=== PATIENT | male | born 1950 | race Caucasian/White ===

== ENCOUNTER → 2018-07-14 | Outpatient (CLI) | payer MEDICARE ==
--- NOTE | 2018-07-14 11:39 | KCIC ---
EXAMINATION: Magnetic resonance imaging (MRI) of the lumbar spine without contrast 07/14/2018 10:15 AM HISTORY: Low back pain extending to the bilateral gluteal regions for 2 weeks. TECHNIQUE: Multiplanar multi-weighted MRI of the lumbar spine was performed without intravenous contrast using the standard lumbar spine protocol. Contrast information: None administered. COMPARISON: None available. FINDINGS: There is minimal retrolisthesis of L2 on L3. Minimal anterolisthesis of L3 on L4 and L4 on L5. There is disc desiccation at all levels of the lumbar spine, sparing L5-S1. Mild disc height loss is identified at L2-L3. No acute fracture is identified. Vertebral body heights are maintained. Mild to moderate intramarginal osteophytosis is identified from L1-L2 through L4-L5. Conus medullaris terminates at L1. Distal spinal cord signal intensity is normal in all sequences. Mild Modic type II endplate degenerative changes are identified anteriorly at L1-L2 and L2-L3. Foci of T1 signal hyperintensity are scattered throughout the lumbar spine suggestive of areas of fatty marrow replacement. There is mild ectasia of infrarenal abdominal aorta measuring 2.5 x 2.4 cm. There is a right common iliac artery aneurysm measuring 3.1 cm. Visualized portions of the sacrum appear intact. L1-L2: Disc is normal in configuration. There is mild facet arthropathy with ligamentum flavum infolding. No neuroforaminal or spinal canal stenosis. L2-L3: There is mild disc bulge. There is moderate facet arthropathy with ligamentum flavum infolding. There is moderate right and mild left neuroforaminal stenosis. There is mild spinal canal stenosis. L3-L4: There is moderate disc bulge. There is moderate facet arthropathy ligamentum flavum infolding. There is moderate right and mild/moderate left neuroforaminal stenosis. Moderate spinal canal stenosis with bilateral lateral recess stenosis. L4-L5: There is moderate disc bulge. There is moderate facet arthropathy. There is mild to moderate bilateral neuroforaminal stenosis, left greater than right. Mild spinal canal stenosis. There is left lateral recess stenosis. L5-S1: Disc is normal in configuration. There is mild to moderate facet arthropathy. No neuroforaminal or spinal canal stenosis. IMPRESSION: 1. Mild multilevel spondylolisthesis with moderate degenerative changes of the lumbar spine, as described in detail above. Findings are most significant from L2-L3 through L4-L5. 2. Right common iliac artery aneurysm measuring up to 3.1 cm. Electronically signed by: Britt Gaspar MD (07/14/2018 11:36 AM) [id number]
== END | disposition home or self-care (01) ==
LOC: KCIC MRI 10:24
PROVIDERS: ATTEND Physician Assistant
DX: M43.16 Spondylolisthesis, lumbar region (principal); M47.816 Spondylosis without myelopathy or radiculopathy, lumbar region; M48.061 Spinal stenosis, lumbar region without neurogenic claudication; I72.3 Aneurysm of iliac artery; M12.88 Other specific arthropathies, not elsewhere classified, other specified site
CPT/HCPCS: 72148

== ENCOUNTER → 2018-08-25 | Outpatient (CLI) | payer MEDICARE ==
[~2018-08-25] MED LIST: CONTRAST GIVEN. MC PRN; IOHEXOL 350 MG/ML 100 ML VIAL. IV ONE; IOHEXOL 350 MG/ML 100 ML VIAL. ONE
[2018-08-25 07:55] LABS: CREATININE 1.1 mg/dL (0.7-1.3); GFR 66.4
--- NOTE | 2018-08-25 09:39 | RAD ---
Chest CTA History: Aneurysm thoracic aorta Technique: After bolus of intravenous contrast, CT imaging was performed of the chest. Multiplanar reconstruction images to include MIP and 3-D reconstruction images are submitted. Exposure: One or more of the following individualized dose reduction techniques were utilized for this examination: 1. Automated exposure control 2. Adjustment of the mA and/or kV according to patient size 3. Use of iterative reconstruction technique. 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 Ascending thoracic aorta is ectatic about 3.9 cm. Descending thoracic aorta is tortuous, maximal caliber proximally about 3 cm. No significant dissection flap is identified, some artifact from motion of ascending thoracic aorta. There is some calcified plaque left subclavian artery origin without significant stenosis. There is some irregular plaque with ulceration near aortic arch. There is coronary calcification. Small 0.6 cm hypodense lesion right lobe liver is more likely a cyst. There is a small 0.5 cm hypodense lesion of the right thyroid gland. There is 0.9 cm sclerotic lesion left scapula inferiorly. Impression: 1. Aortic root is dilated about 4.4 cm, ectatic ascending thoracic aorta about 3.9 cm. 2. There is coronary calcification. There is some irregular ulcerated plaque near aortic arch. 3. There is a small hypodense lesion right thyroid gland. 4. There is nonspecific 0.9 cm sclerotic lesion of the inferior left scapula. Electronically signed by: Christo Gonzales MD (08/25/2018 9:35 AM) [id number]
== END | disposition home or self-care (01) ==
LOC: CT 07:23
PROVIDERS: ATTEND Surgery Vascular Surgery
DX: I77.810 Thoracic aortic ectasia (principal); I25.10 Atherosclerotic heart disease of native coronary artery without angina pectoris; I70.0 Atherosclerosis of aorta; I70.8 Atherosclerosis of other arteries; E04.1 Nontoxic single thyroid nodule; K76.9 Liver disease, unspecified
CPT/HCPCS: 36415; 71275; 82565; Q9967

== ENCOUNTER → 2018-08-27 | Outpatient (CLI) | payer MEDICARE ==
[~2018-08-27] MED LIST changes: -IOHEXOL 350 MG/ML 100 ML VIAL. ONE
--- NOTE | 2018-08-27 13:53 | RAD ---
CTA of the abdomen, pelvis and both lower extremity with contrast, 08/27/2018: HISTORY: Popliteal artery aneurysm, abnormal popliteal pulse Multidetector CT imaging was performed following an IV bolus injection of iodinated contrast material. Multiplanar reconstructions were produced including MIP images as well as 3-D volume rendered reconstructions of the major arteries. There is moderate atherosclerotic plaquing of the abdominal aorta without evidence of high-grade stenosis or aneurysm. The celiac and superior mesenteric artery origins from the aorta are widely patent. There are 2 small right renal arteries, one of which bifurcates shortly distal to its origin. There is mild calcific plaquing at the origins of these vessels with mild associated stenosis. There is a single left renal artery which is widely patent. A patent inferior mesenteric artery is present. On the right there is dilatation of the distal right common iliac artery which measures 2.9 cm in width and 3.3 cm in AP dimension. It extends to the bifurcation of the internal iliac and external iliac arteries. The right external iliac artery is of normal caliber. The right common femoral, superficial femoral and popliteal arteries demonstrate mild scattered atherosclerotic plaquing without evidence of high-grade stenosis. The runoff arteries in the lower legs are best demonstrated on slightly delayed images. There are scattered calcified atherosclerotic plaques in those vessels. The right posterior tibial artery appears to be occluded. The peroneal artery is patent. The right anterior tibial artery is patent proximally. It is less well opacified distally but is probably patent. A patent right dorsalis pedis artery is present. On the left, there are scattered plaques in the common iliac, external iliac and common femoral arteries without evidence of high-grade stenosis. There are scattered plaques in the left superficial femoral and popliteal arteries without evidence of significant stenosis. In the left lower leg the peroneal artery is patent. The proximal posterior tibial artery is patent, however, it is not clearly opacified distally and is probably occluded. The left anterior tibial artery and dorsalis pedis artery are patent. Incidental CT findings include the presence of probable small hepatic and right renal cysts. The prostate gland is enlarged measuring 6.9 cm in width. IMPRESSION: 1. Moderate scattered atherosclerotic plaquing. 2. Moderate sized right common iliac artery aneurysm. 3. No high-grade iliac or femoral-popliteal stenosis is identified. 4. Scattered atherosclerotic plaquing in the runoff arteries in both lower legs with patent peroneal arteries, poorly opacified but probably patent anterior tibial arteries and occluded posterior tibial arteries bilaterally. 5. Moderate nonspecific prostatic enlargement. PQRS Compliance Statement: One or more of the following individualized dose reduction techniques were utilized for this examination: 1. Automated exposure control 2. Adjustment of the mA and/or kV according to patient size 3. Use of iterative reconstruction technique
== END | disposition home or self-care (01) ==
LOC: CT 11:17
PROVIDERS: ATTEND Surgery Vascular Surgery
DX: I72.3 Aneurysm of iliac artery (principal); I70.0 Atherosclerosis of aorta; I70.201 Unspecified atherosclerosis of native arteries of extremities, right leg; N40.0 Benign prostatic hyperplasia without lower urinary tract symptoms; I10 Essential (primary) hypertension; E11.9 Type 2 diabetes mellitus without complications
CPT/HCPCS: 75635; Q9967